=== PATIENT | male | born 1930 | race Caucasian/White ===

== ENCOUNTER 2016-08-22 10:26 | Outpatient (CLI) | payer OTHER ==
--- NOTE | 2016-08-22 13:13 | DIAGNOSTIC IMAGING REPORT ---
PROCEDURE: XR UPPER GI WITH AIR INDICATION: DARK STOOL TECHNIQUE: Real time fluoroscopy was used on the upper GI system. Total fluoro time 4.7 minutes. Cumulative dose 6228.46 mGy 164 images obtained including cine imaging and last image hold screen capture images. COMPARISON: 05/12/2015 FINDINGS: Moderate laryngeal penetration. Moderate diffuse esophageal spasm in the mid and distal esophagus. The distal esophagus is redundant. There is a fixed, smoothly marginated, circumferential esophageal stricture in the distal esophagus with a minimal luminal diameter of approximately 5 mm, similar compared to the previous study. There is moderate size hiatal hernia. Mild to moderate spontaneous gastroesophageal reflux in the recumbent position. No evidence of gastric mucosal irregularity, ulceration, or mass. Prompt gastric emptying. Normal pylorus and duodenal sweep. 12 mm in duodenal diverticulum in the second portion. IMPRESSION: 1. Stable study compared to the previous year. 2. Benign appearing fixed distal esophageal stricture, stable. 3. Moderate diffuse esophageal spasm. 4. Mild to moderate gastroesophageal reflux. 5. Moderate size chronic hiatal hernia. 6. 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
[2016-09-02] MEDS ORDERED: OMEPRAZOLE40 MG PO (11:26)
[2016-09-02] MEDS ORDERED: FLOMAX0.4 MG PO (11:27)
[2016-09-02] MEDS ORDERED: FOSAMAX70 MG PO (11:27)
[2016-09-02] MEDS ORDERED: ATORVASTATIN CA10 MG PO (11:28)
[2016-09-02] MEDS ORDERED: VERAPAMIL HCL240 M4 PO (11:28)
[2016-09-02] MEDS ORDERED: LEVOTHYROXINE50 MCG PO (11:29)
[2016-09-02] MEDS ORDERED: SERTRALINE HCL50 MG PO (11:30)
[2016-09-02] MEDS ORDERED: LISINOPRIL40 MG PO (11:31)
[2016-09-02] MEDS ORDERED: ELIQUIS5 MG PO (11:52)
== END 2016-08-22 23:00 ==
LOC: XR SRH 10:26
DX: K22.4 Dyskinesia of esophagus (principal); K21.9 Gastro-esophageal reflux disease without esophagitis; K44.9 Diaphragmatic hernia without obstruction or gangrene; K57.10 Diverticulosis of small intestine without perforation or abscess without bleeding

== ENCOUNTER 2016-09-05 06:10 | Day surgery (SDC) | payer OTHER ==
[~2016-09-05] VITALS: Ht 177.8 cm; Wt 91.5 kg
[~2016-09-05 06:10] MED LIST: ATORVASTATIN CA10 MG PO; ELIQUIS5 MG PO; FLOMAX0.4 MG PO; FOSAMAX70 MG PO; LEVOTHYROXINE50 MCG PO; LISINOPRIL40 MG PO; OMEPRAZOLE40 MG PO; SERTRALINE HCL50 MG PO; VERAPAMIL HCL240 M4 PO
--- NOTE | 2016-09-05 09:54 | Provider's Discharge Care Plan ---
Problem, Goal, Plan Problem List 1. S/P EGD WITH BALLOON DILATION Goals: Screening, Therapeutic intervention Instructions: Follow up as directed, Take meds as directed
--- NOTE | 2016-09-05 09:54 | Provider's Discharge Care Plan ---
Problem, Goal, Plan Problem List 1. S/P EGD WITH BALLOON DILATION Goals: Screening, Therapeutic intervention Instructions: Follow up as directed, Take meds as directed
--- NOTE | 2016-09-05 10:06 | Operative Report ---
Operative Report Date of Surgery: 09/05/16 Preoperate Diagnosis: melanic stool Postoperative Diagnosis: vital hernia, Schatzki's ring, narrowing at EG junction Surgeon: Dwayne Mcgowan MD Junior Brand Manager Surgeon: none Procedure Performed: Upper GI endoscopy was recommended gastric mucosal biopsies. Balloon dilation of distal esophagus esophagus/EG junction Anesthesia: General intra- venous anesthesia Indications: 85-year-old male on chronic blood thinners was noted to have melenic stool. It was recommended he undergo colonoscopy he refused. Patient decided to proceed with EGD. Barium swallow shows reflux, hiatal hernia, narrowing of the distal esophagus at the EG junction. FINDINGS: Narrowing of the EG junction which Schatzki's ring, moderate to large hiatal hernia. Normal appearing gastric ankle pattern. Normal appearing duodenal bulb and duodenum. Surgical Technique: Patient brought to the operating room placed in the left lateral decubitus position. Patient was administered total intravenous anesthesia.. Once anesthesia had taken affect, the posterior pharynx was sprayed using Cetacaine spray. An Olympus fiberoptic video upper GI endoscope was passed in to the patient's posterior pharynx. The esophagus intubated under direct visualization. The scope passed easily down the esophagus through the EG junction which was located approximately at. The scope passed easily through the EG junction into the gastric lumen and eventually into the second third portion of duodenum. On withdrawing the scope, the afore mentioned findings were noted. The scope was withdrawn into the gastric lumen and retroflexed. Good view of the cardia, fundus, hiatal hernia and EG junction from below, and greater and lesser curvature. Multiple random biopsies were obtained of the gastric mucosa to rule out H. pylori. The scope was withdrawn into the EG junction, a balloon catheter was passed across the EG junction. The dilating balloon was insufflated at 6 orly to 20 mm and kept in position for approximately 3 min. The balloon was then deflated The scope and balloon were then completely withdrawn. Patient tolerated procedure well. Patient was transferred to the recovery room in stable condition. There were no intraoperative or anesthetic complications.
[2016-09-05 11:13] VITALS: BP 132/90
== END 2016-09-05 11:15 | disposition home or self-care (01) ==
LOC: OR SRH 06:10 → SCU SRH 06:11 → OR SRH 07:30
PROVIDERS: Specialist
PROC: 0D738ZZ Dilation of Lower Esophagus, Via Natural or Artificial Opening Endoscopic (ICD-10-PCS; principal; 2016-09-05 07:30)
PROC: 0D748ZZ Dilation of Esophagogastric Junction, Via Natural or Artificial Opening Endoscopic (ICD-10-PCS; principal; 2016-09-05 07:30)
PROC: 0DB68ZX Excision of Stomach, Via Natural or Artificial Opening Endoscopic, Diagnostic (ICD-10-PCS; principal; 2016-09-05 07:30)
DX: K22.2 Esophageal obstruction (principal); K44.9 Diaphragmatic hernia without obstruction or gangrene; Z79.01 Long term (current) use of anticoagulants; Z86.73 Personal history of transient ischemic attack (TIA), and cerebral infarction without residual deficits; I10 Essential (primary) hypertension
CPT/HCPCS: 29229; 29240; 50004; 60001; 82731; 82943; 83526; 90074; 90705; 94060

== ENCOUNTER 2016-09-17 12:27 | Emergency (ER) | payer OTHER ==
--- NOTE | 2016-09-17 14:17 | ED NURSING NOTES ---
Clinical Report - Nurses [place] [address] [place] [address] 09/17/2016 12:29 Patient: SHAN MENA TRIAGE Triage time 12:35. Acuity: LEVEL 3. Chief Complaint: FALL (GLF: while trying to get into a car. Denies feeling dizzy. Pt. states, "I just fell to the ground." Denies hitting head or LOC.). Alert. No acute distress. SEPSIS SCREEN: Sepsis Screen. Negative (no infection suspected/documented). MARCOS COMA SCORE: Marcos Coma Scale: 15- eyes open spontaneously (4); best verbal response- oriented x 4 (5); best motor response- obeys commands (6). --13:06 Racheal Mauricio R.N. 12:35 09/17/16. BP: 146/83. HR: 70. RR: 20. O2 saturation: 98%. Temp: 98.2 F. Pain level now 10. --13:06 Racheal Mauricio R.N. Weight: 95.2 kg stated. Height/Length: 70 inches Per Patient. BMI: 30.1. --12:36 Racheal Mauricio R.N. Medications Fosamax Oral 70 mg, once weekly. --12:55 Racheal Mauricio R.N. Sertraline HCl Oral 50 mg, daily. --12:55 Racheal Mauricio R.N. Flomax Oral 0.4 mg, 2x a day. --12:55 Racheal Mauricio R.N. Atorvastatin Calcium Oral 10 mg, daily. --12:55 Racheal Mauricio R.N. Verapamil HCl Oral 240mg ER , at bedtime. --12:56 Racheal Mauricio R.N. Levothyroxine Sodium Oral 50 mcg, daily. --12:57 Racheal Mauricio R.N. Lisinopril Oral 40 mg, daily. --12:57 Racheal Mauricio R.N. Allergies NKDA. --12:41 Racheal Mauricio R.N. History Arrived by EMS. Historian: patient. Accompanied by son. Primary physician (Dr. Bright). Location of injuries: left hip. This occurred today. ( pt. removed from backboard @ 12:40). Treatment TUB TENDER: Splint and (and backboard). PAST MEDICAL HX: Tetanus status: unknown. Immunizations: up-to-date. SOCIAL HX: Never smoker. No alcohol use or drug use. ABUSE ASSESSMENT: Abuse assessment: The patient was asked "Do you feel safe in your home?" and "Has anyone hurt you or threatened to hurt you?". No report of abuse. NUTRITIONAL RISK ASSESSMENT: The nutritional risk assessment revealed no deficiencies. FUNCTIONAL ASSESSMENT: Functional assessment: no impairments noted. LEARNING NEEDS ASSESSMENT: The learning needs assessment revealed no barriers. --13:06 Racheal Mauricio R.N. PROBLEMS: Anemia. CVA - Cerebrovascular Accident. Depression. Hypothyroidism. Hypertension. Hyperlipidemia. --13:04 Racheal Mauricio R.N. Arrhythmia. --13:05 Racheal Mauricio R.N. ADDITIONAL SURGERIES: Back Surgery. Hernia Repair. Left knee. Pacemaker. --13:05 Racheal Mauricio R.N. Interventions ID band on patient. Transported via stretcher. --13:06 Racheal Mauricio R.N. PHYSICAL ASSESSMENT To room via stretcher. GENERAL / NEURO / PSYCH: Alert. Appears in no acute distress. RESPIRATORY: Respirations not labored. CVS: Capillary refill less than 2 seconds. EXTREMITIES: Right thumb: (small abrasion. Bleeding controlled.). SKIN: Skin is warm and dry. ( small abrasion on the left elbow. Bleeding controlled.). --12:39 Racheal Mauricio R.N. NURSING PROGRESS NOTES Patient placed on backboard. Two patient identifiers checked. Call light placed in reach. Side rails up x 2. Bed placed in lowest position. Brakes of bed on. Patient ready for evaluation- chart flagged. --12:39 Racheal Mauricio R.N. 12:39 09/17/2016 Site #1 started via IV in the right forearm with an 20g angiocath, with aseptic technique and good blood return; one attempt. Blood drawn: rainbow set. Labeled in the presence of the patient and sent to the lab. Saline lock flushed with 10 mL saline (accessed by MAR Mao). --12:39 Racheal Mauricio R.N. 12:40 09/17/2016 Morphine IVP 4 mg given over 1 minute(s) via site #1. Allergies verified, confirmed 5 rights and sedative warning given to the patient. IV patency established. IV site checked: no pain, redness, or swelling. IV flushed thoroughly pre- and post-medication administration. --12:40 Racheal Mauricio R.N. 12:40 09/17/2016 Zofran (Ondansetron HCl) IVP 4 mg given over 1 minute(s) via site #1. Allergies verified and confirmed 5 rights. IV patency established. IV site checked: no pain, redness, or swelling. IV flushed thoroughly pre- and post-medication administration. --12:40 Racheal Mauricio R.N. 12:51 09/17/2016 Morphine IVP 4 mg given over 1 minute(s) via site #1. Allergies verified, confirmed 5 rights and sedative warning given to the patient. IV patency established. IV site checked: no pain, redness, or swelling. IV flushed thoroughly pre- and post-medication administration. --12:51 Racheal Mauricio R.N. 12:56 09/17/2016 Diazepam (Diazepam) IVP 5 mg given over 2 minute(s) via site #1. Allergies verified, confirmed 5 rights and sedative warning given to the patient. IV patency established. IV site checked: no pain, redness, or swelling. IV flushed thoroughly pre- and post-medication administration (administered by Daylin, MAR). --13:01 Racheal Mauricio R.N. Reassessment after medication administered. He has had no adverse reaction. Overall patient status- he states feels better. --13:06 Racheal Mauricio R.N. 13:06 09/17/16. BP: 123/68. HR: 70. RR: 16. O2 saturation: 98%. --13:06 Racheal Mauricio R.N. Patient transported to radiology by stretcher with O2 and tech. (13:12 Sep 17 2016). --13:19 Poncho Merritt R.N. 13:52 09/17/2016 Started bag #1 1000 mL IV Fluids IV LACTATED RINGERS; at 150 mL/hr over 4 hour(s) via site #1 via IV pump. Allergies verified and confirmed 5 rights. IV patency established. IV site checked: no pain, redness, or swelling. IV flushed thoroughly pre- and post-medication administration. --13:52 Racheal Mauricio R.N. 13:54 09/17/2016 TDAP IM 0.5 mL given. (Lot#: [id number], expiration date: 02/05/2018, Chief Knowledge Officer: sanofi pasteur). Given in the left deltoid. Allergies verified and confirmed 5 rights. Vaccine information statement provided to the patient. --13:54 Racheal Mauricio R.N. EKG time: (1402). EKG was ordered, performed by a tech and shown to the ED physician. --14:13 Ayanna Prather 14:23 09/17/16. BP: 124/63. HR: 70. RR: 18. O2 saturation: 99%. Temp: 97.9 F. --14:25 Ayanna Prather 15:03 09/17/16. BP: 125/64. HR: 70. RR: 18. O2 saturation: 99%. Pain level now 10/10. --15:03 Racheal Mauricio R.N. Patient and family informed about reason for wait and about plan of care. --15:03 Racheal Mauricio R.N. 15:45 09/17/2016 Morphine IVP 4 mg given over 2 minute(s) via site #1. Allergies verified, confirmed 5 rights and sedative warning given to the patient and patient's family. IV patency established. IV site checked: no pain, redness, or swelling. IV flushed thoroughly pre- and post-medication administration. IVP given by RN. --15:45 Jeanna Kendrick R.N. 16:41 09/17/2016 Started 1000 mg of TRANEXAMIC ACID (LOADING DOSE) IVPB in bag #1 50 mL; at 200 mL/hr over 15 minute(s) via site #1 via IV pump. Allergies verified and confirmed 5 rights. IV patency established. IV site checked: no pain, redness, or swelling. IV flushed thoroughly pre- and post-medication administration. --16:41 Racheal Mauricio R.N. 16:42 09/17/16. BP: 115/54. HR: 70. RR: 16. O2 saturation: 100%. --16:42 Racheal Mauricio R.N. 12:39 09/17/2016 Site #2 started via IV in the right forearm with an 20g angiocath, with aseptic technique and good blood return; one attempt. Saline lock flushed with 10 mL saline (site # 1. placed by MAR Mao). --18:24 Racheal Mauricio R.N. 17:00 09/17/2016 TRANEXAMIC ACID (LOADING DOSE) IVPB Discontinued: bag #1 completed upon admission. Total amount infused: 50 mL. IV patency established. IV site checked: no pain, redness, or swelling. IV flushed thoroughly. --17:00 Lloyd Sullivan R.N. 18:05 09/17/2016 Morphine IVP 4 mg given over 1 minute(s) via site #1. Allergies verified, confirmed 5 rights and sedative warning given to the patient. IV patency established. IV site checked: no pain, redness, or swelling. IV flushed thoroughly pre- and post-medication administration. --18:24 Racheal Mauricio R.N. 18:10 09/17/2016 IV Fluids IV LACTATED RINGERS Discontinued: bag #1 infused. Total amount infused: 500 mL. IV patency established. IV site checked: no pain, redness, or swelling. IV flushed thoroughly. --18:16 Racheal Mauricio R.N. DISPOSITION / DISCHARGE 17:51 09/17/2016 Site #[address] upon discharge; patent and no signs of infiltration. Converted to saline lock and flushed with 10 mL saline; flushes easily. --17:51 Racheal Mauricio R.N. Condition at departure: stable. --18:14 Racheal Mauricio R.N. 18:10 09/17/16. BP: 110/52. HR: 70. RR: 16. O2 saturation: 98%. Temp: 98 F. Olvera-Leone pain scale: 08/08. --18:14 Racheal Mauricio R.N. Departure time: 1809. Transferred to [facility]. Summary of care provided to transport team. Transported via ambulance by nurse and EMS with IV and O2. Report was given to a nurse in person. Report included patient's care, treatment, medications, reviewed medication reconcilliation, and condition (including any recent changes or anticipated changes). (to transport team). Patient's personal items; items were placed in belongings bag and given to the spouse. Medication list reviewed and validated. --18:27 Racheal Mauricio R.N. Locked/Released at 09/17/2016 18:28 by Racheal Mauricio R.N.
--- NOTE | 2016-09-17 14:17 | ED ORDER SUMMARY ---
..... Patient: SHAN MENA [facility] VisitID: [id number] [place] [address] 85y, M Registration Date/Time: 09/17/2016 ORDER SHEET Weight: 95.2 kg (stated) Allergies: NKDA GENERAL ORDERS: Hip 2V Left w AP Pelvis Urgent (12:58 09/17/2016 Alfredo Harrell) (Ack 12:59 Bakari) (14:29 JPerrya R.N.) CBC w Diff Urgent (12:58 09/17/2016 Alfredo Harrell) (Ack 12:59 Bakari) (14:28 JNate R.N.) CMP Urgent (12:58 09/17/2016 Alfredo Harrell) (Ack 12:59 Bakari) (14:29 JNate R.N.) Chest 1V Urgent (13:30 09/17/2016 Alfredo Harrell) (Ack 13:32 Bakari) (14:29 Yogesh R.N.) NPO (13:38 09/17/2016 Alfredo Harrell) (13:45 Suki R.N.) EKG - ER Stat (13:51 09/17/2016 Alfredo Harrell) (14:23 Markus) PT with INR Urgent (13:51 09/17/2016 Alfredo Harrell) (Ack 14:10 Bakari) (14:29 Yogesh R.N.) PTT Urgent (13:51 09/17/2016 Alfredo Harrell) (Ack 14:10 Bakari) (14:29 Yogesh R.N.) Type & Screen Urgent (15:03 09/17/2016 Bakari written order Alfredo Harrell) (Ack 15:03 Suki R.N.) (15:20 Suki R.N.) MEDICATION ORDERS: Tdap IM 0.5 mL (NOW, per protocol) (13:30 09/17/2016 Alfredo Harrell) (13:54 Suki R.N.) Tranexamic Acid (Loading Dose) IV 1000 mg/50mL (Over 15 minutes) (15:44 09/17/2016 Alfredo Harrell) (Ack 16:13 Suki R.N.) (16:41 Suki R.N.) IV FLUIDS: Morphine IV 4 mg (NOW) (12:40 09/17/2016 Suki R.NViolette verbal order read back to Alfredo Harrell) (12:40 Suki R.N.) Zofran IV 4 mg (NOW) (12:40 09/17/2016 Suki Vee.NViolette verbal order read back to Alfredo Harrell) (12:40 Suki R.N.) Morphine IV 4 mg (NOW) (12:50 09/17/2016 Suki R.NViolette verbal order read back to Alfredo Harrell) (12:51 Suki R.N.) Diazepam IV 5 mg (HIGH ALERT MEDICATION, NOW) (12:52 09/17/2016 Alfredo Harrell) (13:01 Suki R.N.) IV Lactated Ringers : initial bolus none -, then 150 mL/hr (NOW) (13:38 09/17/2016 Alfredo Harrell) (13:52 Suki R.N.) Morphine IV 4 mg (HIGH ALERT MEDICATION, NOW) (15:41 09/17/2016 Alfredo Harrell) (Ack 15:44 Camden R.N.) (15:45 Felicity R.N.) Morphine IV 4 mg (HIGH ALERT MEDICATION, NOW) (18:05 09/17/2016 Alfredo Harrell) (18:24 Suki R.N.) ORDER SHEET NOTES: Reason for Study: Anemia [Electronically signed by Racheal Mauricio R.N. (18:28 09/17/2016)] [Electronically signed by Melvin Faye Dr. (18:57 09/17/2016)] [Electronically locked/signed by Racheal Mauricio R.N. (18:28 09/17/2016)]
--- NOTE | 2016-09-17 14:17 | ED CLINICAL REPORT ---
Clinical Report - Physicians/Mid Levels [facility] [address] [place] [address] 09/17/2016 12:29 [id number] Time Seen: 12:37; initial patient contact. Arrived- By ambulance. Historian- patient. HISTORY OF PRESENT ILLNESS Chief Complaint: FALL. The injury occurred just prior to arrival. Occurred at home. Fell while walking and landed on the ground; tripped. The patient complains of severe pain in the left lower extremity (hip). No blow to the head, neck pain or loss of consciousness. Not dazed. REVIEW OF SYSTEMS No numbness, dizziness, weakness, abdominal pain or back pain. No neck pain. He sustained skin laceration. He has had severe joint pain, involving the left hip. All systems otherwise negative, except as recorded above. PAST HISTORY Anemia. CVA - Cerebrovascular Accident. Depression. Hypothyroidism. Hypertension. Hyperlipidemia. Arrhythmia. SURGERIES: Back Surgery. Hernia Repair. Left knee. Pacemaker. Medications: Lisinopril Oral 40 mg, daily. Levothyroxine Sodium Oral 50 mcg, daily. Verapamil HCl Oral 240mg ER , at bedtime. Atorvastatin Calcium Oral 10 mg, daily. Flomax Oral 0.4 mg, 2x a day. Sertraline HCl Oral 50 mg, daily. Fosamax Oral 70 mg, once weekly. Allergies: NKDA. SOCIAL HISTORY Never smoker. No alcohol use or drug use. ADDITIONAL NOTES The nursing notes have been reviewed. PHYSICAL EXAM Vital Signs: 09/17/2016 12:35 BP: 146/83. HR: 70. RR: 20. O2 saturation: 98%. Temp: 98.2 F. Have been reviewed. Hypertensive. Heart rate normal. Respiratory rate normal. Temperature normal. Oxygen saturation normal. Appearance: Patient on a backboard. Alert. Oriented X3. No acute distress. Head: Head non-tender. No swelling of head. Eyes: Pupils equal, round and reactive to light. EOM intact. ENT: No dental injury. Pharynx normal. Neck: Painless ROM. Non-tender. CVS: Heart sounds normal. Rate normal. Rhythm normal. Respiratory: No respiratory distress. Breath sounds normal. Chest nontender. Abdomen: No visible injury. Soft and nontender. Bowel sounds normal. No organomegaly. No mass. Back: No tenderness. ROM normal. Skin: The patient has a single medium superficial abrasion on the left elbow. Extremities: Left hip: moderate tenderness. The left leg is shortened, internally rotated and flexed. Limited ROM (diminished abduction, adduction, flexion, extension and external and internal rotation). Neurovascular intact distally. No lower extremity edema. Neuro: Oriented X 3. LABS, X-RAYS, AND EKG Chest X-ray: No acute disease. Borderline cardiomegaly. No evidence of vascular congestion. Pacemaker present. Views: AP. Technique: good. The X-rays were independently viewed by me and interpreted contemporaneously by me. Interpretation time: 12:59. Lt Hip X-ray: Nondisplaced, oblique intertrochanteric fracture of the left hip. Views: 2 view hip series. Technique: good. The X-rays were independently viewed by me and interpreted contemporaneously by me. Prior films were not available for comparison. Interpretation time: 14:14. Laboratory Tests: CBC w Diff: (NELSON: 09/17/2016 13:00) ( MsgRcvd 09/17/2016 13:42) Final results Test Result Flag Units (Reference) WHITE BLOOD COUNT 7.2 K/uL (4.5-11.5) RED BLOOD COUNT 3.97 L M/uL (4.50-5.90) HEMOGLOBIN 8.9 L gm/dL (13.5-17.5) HEMATOCRIT 28.3 L % (41.0-53.0) MEAN CELL VOLUME 71 L fL (80-100) MEAN CORPUSCULAR HGB 22 L pg (26-34) MEAN CORPUSCULAR HGB CONC 31 g/dL (31-37) RED CELL DISTRIBUTION WIDTH 17.4 H % (11.6-14.8) PLATELET COUNT 255 K/uL (150-400) NEUTROPHIL % 69.8 % (50-75) LYMPH % 18.8 L % (25-40) MONO % 10.2 % (3-14) EOSINOPHIL % 1.1 % (0-4) BASOPHIL % 0.1 % (0-2) RBC MORPHOLOGY 3+ HYPOCHROMASIA~~2+ ANISOCYTOSIS~~1+ OVALOCYTOSIS PT with INR: (NELSON: 09/17/2016 13:00) ( MsgRcvd 09/17/2016 14:11) Final results Test Result Flag Units (Reference) INR 1.1 (0.8-1.2) Low Intensity Therapy: INR 1.5-2.0 PT range 18.5-23.1Mod.Intensity Therapy: INR 2.0-3.0 PT range 23.1-31.5High Intensity Therapy: INR 2.5-3.5 PT range 27.4-35.5High Intensity Therapy 2: INR 3.0-4.0 PT range 31.5-39.3 APTT 28 SECONDS (24-34) CMP: (NELSON: 09/17/2016 13:00) ( NygRcvd 09/17/2016 13:35) Final results Test Result Flag Units (Reference) GLUCOSE 109 mg/dL (70-110) BUN 21 H mg/dL (7-18) CREATININE 1.1 mg/dL (0.6-1.3) Estimated GFR >60 mL/min Estimated GFR- >60 mL/min Note: Persistent reduction over 3 months in eGFR<60 mL/min/1.73 m2 defines CKD. Patients with eGFR values>=60 mL/min/1.73 m2 may also have CKD if evidence ofpersistent proteinuria. Additional information may be foundat www.kidney.org. SODIUM 139 mmol/L (136-145) POTASSIUM 3.8 mmol/L (3.5-5.1) CHLORIDE 105 mmol/L (98-107) CARBON DIOXIDE 19 L mmol/L (21-32) CALCIUM 8.1 L mg/dL (8.5-10.1) TOTAL PROTEIN 6.7 g/dL (6.4-8.2) ALBUMIN 3.5 g/dL (3.3-5.0) BILIRUBIN, TOTAL 0.5 mg/dL (0.0-1.0) ALKALINE PHOSPHATASE 62 U/L (46-116) AST (SGOT) 20 U/L (15-37) ALT (SGPT) 21 U/L (12-78) Type & Screen: (NELSON: 09/17/2016 13:00) ( MsgRcvd 09/17/2016 16:05) Final results Test Result Flag Units (Reference) PATIENT BLOOD TYPE O Positive ANTIBODY SCREEN NEGATIVE . PROGRESS AND PROCEDURES Course of Care: 16:36 09/17/16. Getting multiple setbacks from Pt's , grand daughter, and daughter. A lot of insistence on transferring the pt to [facility] for surgery. Explained that we spoke with [facility] and he would be a boarder in the ER for several hours prior to being taken care of. Awaiting call from ortho at [facility]. Pt has been seen by the hospitalist as well as ortho and the OR team has been here on standby. We have explained to the pt and family that delay in care is inadvisable but they prefer for him to not have surgery at a [facility]. 18:51 09/17/16. Pt's daughter who is a flight nurse for had been insisting that he go via helicopter to [place]. Pt is and has been stable the entire stay. S transfer is more than appropriate and in my opinion tying up a helicopter for a non-emergent transfer is not necessary and would potentially tie up valuable resources unnecessarily. Discussed case with hospitalist, (call returned 14:14 Dr. Ramos will admit due to Dr. Deangelo JIMENEZ(will take over in the AM).). Call placed to hospitalist call returned 17:06 Dr. Bosch at [facility](Hospitalist) will accept pt and ortho will see once they arrive. Consult obtained from orthopedics. call returned 14:15 Dr. Richardson, will admit to medicine and clear and he will take to the OR as soon as he is cleared. Disposition: Benefits, risks and alternatives to transfer explained to patient and family. Transferred to [facility]. Per family request. Condition: good. CLINICAL IMPRESSION Closed nondisplaced transverse, intertrochanteric fracture of the left femur. Moderate chronic iron deficiency anemia from chronic blood loss. INSTRUCTIONS Follow-up: Blood pressure screening was not performed during this visit because the patient has an active diagnosis of hypertension. (Electronically signed by Melvin Faye Dr. 09/17/2016 18:57)
--- NOTE | 2016-09-17 14:17 | ED ORDER SUMMARY ---
..... Patient: SHAN MENA OrderSheet [facility] VisitID: [id number] [place] [address] 85y, M Registration Date/Time: 09/17/2016 ORDER SHEET Weight: 95.2 kg (stated) Allergies: NKDA GENERAL ORDERS: Hip 2V Left w AP Pelvis Urgent (12:58 09/17/2016 Alfredo Harrell) (Ack 12:59 Bakari) (14:29 JPerrya R.N.) CBC w Diff Urgent (12:58 09/17/2016 Alfredo Harrell) (Ack 12:59 Bakari) (14:28 JNate R.N.) CMP Urgent (12:58 09/17/2016 Alfredo Harrell) (Ack 12:59 Bakari) (14:29 JNate R.N.) Chest 1V Urgent (13:30 09/17/2016 Alfredo Harrell) (Ack 13:32 Bakari) (14:29 Yogesh R.N.) NPO (13:38 09/17/2016 Alfredo Harrell) (13:45 Suki R.N.) EKG - ER Stat (13:51 09/17/2016 Alfredo Harrell) (14:23 Markus) PT with INR Urgent (13:51 09/17/2016 Alfredo Harrell) (Ack 14:10 Bakari) (14:29 Yogesh R.N.) PTT Urgent (13:51 09/17/2016 Alfredo Harrell) (Ack 14:10 Bakari) (14:29 Yogesh R.N.) Type & Screen Urgent (15:03 09/17/2016 Bakari written order Alfredo Harrell) (Ack 15:03 Suki R.N.) (15:20 Suki R.N.) MEDICATION ORDERS: Tdap IM 0.5 mL (NOW, per protocol) (13:30 09/17/2016 Alfredo Harrell) (13:54 Suki R.N.) Tranexamic Acid (Loading Dose) IV 1000 mg/50mL (Over 15 minutes) (15:44 09/17/2016 Alfredo Harrell) (Ack 16:13 Suki R.N.) (16:41 Suki R.N.) IV FLUIDS: Morphine IV 4 mg (NOW) (12:40 09/17/2016 Suki R.NViolette verbal order read back to Alfredo Harrell) (12:40 Suki R.N.) Zofran IV 4 mg (NOW) (12:40 09/17/2016 Suki Vee.NViolette verbal order read back to Alfredo Harrell) (12:40 Suki R.N.) Morphine IV 4 mg (NOW) (12:50 09/17/2016 Suki R.NViolette verbal order read back to Alfredo Harrell) (12:51 Suki R.N.) Diazepam IV 5 mg (HIGH ALERT MEDICATION, NOW) (12:52 09/17/2016 Alfredo Harrell) (13:01 Suki R.N.) IV Lactated Ringers : initial bolus none -, then 150 mL/hr (NOW) (13:38 09/17/2016 Alfredo Harrell) (13:52 Suki R.N.) Morphine IV 4 mg (HIGH ALERT MEDICATION, NOW) (15:41 09/17/2016 Alfredo Harrell) (Ack 15:44 Camden R.N.) (15:45 Felicity R.N.) Morphine IV 4 mg (HIGH ALERT MEDICATION, NOW) (18:05 09/17/2016 Alfredo Harrell) (18:24 Suki R.N.) ORDER SHEET NOTES: Reason for Study: Anemia [Electronically signed by Racheal Mauricio R.N. (18:28 09/17/2016)] [Electronically signed by Melvin Faye Dr. (18:57 09/17/2016)] [Electronically locked/signed by Racheal Mauricio R.N. (18:28 09/17/2016)]
--- NOTE | 2016-09-17 14:17 | ED CLINICAL REPORT ---
Clinical Report - Physicians/Mid Levels [facility] [address] [place] [address] 09/17/2016 12:29 [id number] Time Seen: 12:37; initial patient contact. Arrived- By ambulance. Historian- patient. HISTORY OF PRESENT ILLNESS Chief Complaint: FALL. The injury occurred just prior to arrival. Occurred at home. Fell while walking and landed on the ground; tripped. The patient complains of severe pain in the left lower extremity (hip). No blow to the head, neck pain or loss of consciousness. Not dazed. REVIEW OF SYSTEMS No numbness, dizziness, weakness, abdominal pain or back pain. No neck pain. He sustained skin laceration. He has had severe joint pain, involving the left hip. All systems otherwise negative, except as recorded above. PAST HISTORY Anemia. CVA - Cerebrovascular Accident. Depression. Hypothyroidism. Hypertension. Hyperlipidemia. Arrhythmia. SURGERIES: Back Surgery. Hernia Repair. Left knee. Pacemaker. Medications: Lisinopril Oral 40 mg, daily. Levothyroxine Sodium Oral 50 mcg, daily. Verapamil HCl Oral 240mg ER , at bedtime. Atorvastatin Calcium Oral 10 mg, daily. Flomax Oral 0.4 mg, 2x a day. Sertraline HCl Oral 50 mg, daily. Fosamax Oral 70 mg, once weekly. Allergies: NKDA. SOCIAL HISTORY Never smoker. No alcohol use or drug use. ADDITIONAL NOTES The nursing notes have been reviewed. PHYSICAL EXAM Vital Signs: 09/17/2016 12:35 BP: 146/83. HR: 70. RR: 20. O2 saturation: 98%. Temp: 98.2 F. Have been reviewed. Hypertensive. Heart rate normal. Respiratory rate normal. Temperature normal. Oxygen saturation normal. Appearance: Patient on a backboard. Alert. Oriented X3. No acute distress. Head: Head non-tender. No swelling of head. Eyes: Pupils equal, round and reactive to light. EOM intact. ENT: No dental injury. Pharynx normal. Neck: Painless ROM. Non-tender. CVS: Heart sounds normal. Rate normal. Rhythm normal. Respiratory: No respiratory distress. Breath sounds normal. Chest nontender. Abdomen: No visible injury. Soft and nontender. Bowel sounds normal. No organomegaly. No mass. Back: No tenderness. ROM normal. Skin: The patient has a single medium superficial abrasion on the left elbow. Extremities: Left hip: moderate tenderness. The left leg is shortened, internally rotated and flexed. Limited ROM (diminished abduction, adduction, flexion, extension and external and internal rotation). Neurovascular intact distally. No lower extremity edema. Neuro: Oriented X 3. LABS, X-RAYS, AND EKG Chest X-ray: No acute disease. Borderline cardiomegaly. No evidence of vascular congestion. Pacemaker present. Views: AP. Technique: good. The X-rays were independently viewed by me and interpreted contemporaneously by me. Interpretation time: 12:59. Lt Hip X-ray: Nondisplaced, oblique intertrochanteric fracture of the left hip. Views: 2 view hip series. Technique: good. The X-rays were independently viewed by me and interpreted contemporaneously by me. Prior films were not available for comparison. Interpretation time: 14:14. Laboratory Tests: CBC w Diff: (NELSON: 09/17/2016 13:00) ( MsgRcvd 09/17/2016 13:42) Final results Test Result Flag Units (Reference) WHITE BLOOD COUNT 7.2 K/uL (4.5-11.5) RED BLOOD COUNT 3.97 L M/uL (4.50-5.90) HEMOGLOBIN 8.9 L gm/dL (13.5-17.5) HEMATOCRIT 28.3 L % (41.0-53.0) MEAN CELL VOLUME 71 L fL (80-100) MEAN CORPUSCULAR HGB 22 L pg (26-34) MEAN CORPUSCULAR HGB CONC 31 g/dL (31-37) RED CELL DISTRIBUTION WIDTH 17.4 H % (11.6-14.8) PLATELET COUNT 255 K/uL (150-400) NEUTROPHIL % 69.8 % (50-75) LYMPH % 18.8 L % (25-40) MONO % 10.2 % (3-14) EOSINOPHIL % 1.1 % (0-4) BASOPHIL % 0.1 % (0-2) RBC MORPHOLOGY 3+ HYPOCHROMASIA~~2+ ANISOCYTOSIS~~1+ OVALOCYTOSIS PT with INR: (NELSON: 09/17/2016 13:00) ( MsgRcvd 09/17/2016 14:11) Final results Test Result Flag Units (Reference) INR 1.1 (0.8-1.2) Low Intensity Therapy: INR 1.5-2.0 PT range 18.5-23.1Mod.Intensity Therapy: INR 2.0-3.0 PT range 23.1-31.5High Intensity Therapy: INR 2.5-3.5 PT range 27.4-35.5High Intensity Therapy 2: INR 3.0-4.0 PT range 31.5-39.3 APTT 28 SECONDS (24-34) CMP: (NELSON: 09/17/2016 13:00) ( DegRcvd 09/17/2016 13:35) Final results Test Result Flag Units (Reference) GLUCOSE 109 mg/dL (70-110) BUN 21 H mg/dL (7-18) CREATININE 1.1 mg/dL (0.6-1.3) Estimated GFR >60 mL/min Estimated GFR- >60 mL/min Note: Persistent reduction over 3 months in eGFR<60 mL/min/1.73 m2 defines CKD. Patients with eGFR values>=60 mL/min/1.73 m2 may also have CKD if evidence ofpersistent proteinuria. Additional information may be foundat www.[email or web address].org. SODIUM 139 mmol/L (136-145) POTASSIUM 3.8 mmol/L (3.5-5.1) CHLORIDE 105 mmol/L (98-107) CARBON DIOXIDE 19 L mmol/L (21-32) CALCIUM 8.1 L mg/dL (8.5-10.1) TOTAL PROTEIN 6.7 g/dL (6.4-8.2) ALBUMIN 3.5 g/dL (3.3-5.0) BILIRUBIN, TOTAL 0.5 mg/dL (0.0-1.0) ALKALINE PHOSPHATASE 62 U/L (46-116) AST (SGOT) 20 U/L (15-37) ALT (SGPT) 21 U/L (12-78) Type & Screen: (NELSON: 09/17/2016 13:00) ( MsgRcvd 09/17/2016 16:05) Final results Test Result Flag Units (Reference) PATIENT BLOOD TYPE O Positive ANTIBODY SCREEN NEGATIVE . PROGRESS AND PROCEDURES Course of Care: 16:36 09/17/16. Getting multiple setbacks from Pt's , grand daughter, and daughter. A lot of insistence on transferring the pt to [facility] for surgery. Explained that we spoke with [facility] and he would be a boarder in the ER for several hours prior to being taken care of. Awaiting call from ortho at [facility]. Pt has been seen by the hospitalist as well as ortho and the OR team has been here on standby. We have explained to the pt and family that delay in care is inadvisable but they prefer for him to not have surgery at a [facility]. 18:51 09/17/16. Pt's daughter who is a flight nurse for had been insisting that he go via helicopter to [place]. Pt is and has been stable the entire stay. S transfer is more than appropriate and in my opinion tying up a helicopter for a non-emergent transfer is not necessary and would potentially tie up valuable resources unnecessarily. Discussed case with hospitalist, (call returned 14:14 Dr. Ramos will admit due to Dr. Deangelo JIMENEZ(will take over in the AM).). Call placed to hospitalist call returned 17:06 Dr. Bosch at [facility](Hospitalist) will accept pt and ortho will see once they arrive. Consult obtained from orthopedics. call returned 14:15 Dr. Richardson, will admit to medicine and clear and he will take to the OR as soon as he is cleared. Disposition: Benefits, risks and alternatives to transfer explained to patient and family. Transferred to [facility]. Per family request. Condition: good. CLINICAL IMPRESSION Closed nondisplaced transverse, intertrochanteric fracture of the left femur. Moderate chronic iron deficiency anemia from chronic blood loss. INSTRUCTIONS Follow-up: Blood pressure screening was not performed during this visit because the patient has an active diagnosis of hypertension. (Electronically signed by Melvin Faye Dr. 09/17/2016 18:57)
--- NOTE | 2016-09-17 14:53 | DIAGNOSTIC IMAGING REPORT ---
PROCEDURE: XR HIP 2VW W W/O AP PELVIS-LT INDICATION: TRAUMA/INJURY TECHNIQUE: AP view of the pelvis and hips with lateral view of the left hip. COMPARISON: None. FINDINGS: LEFT HIP: Mildly decreased mineralization. Minimally angulated, minimally displaced intertrochanteric left femoral neck fracture. No dislocation. Mild degenerative joint space loss and spurring of the femoral acetabular region. PELVIS: Mild decreased mineralization. No acute pelvic fracture. Decreased joint space inferiorly at both sacroiliac joints and pubic symphysis. Mild joint space loss and spurring in the right lateral femoral acetabular joint. Multiple surgical tacks of bilateral inguinal hernia repair. IMPRESSION: 1. Minimally displaced/angulated left intertrochanteric femoral neck fracture. 2. No pelvic fracture. 3. Findings of prior hernia repair. 4. Mild degenerative changes.
--- NOTE | 2016-09-17 14:55 | DIAGNOSTIC IMAGING REPORT ---
PROCEDURE: XR CHEST 1 VIEW INDICATION: Trauma, hip fracture TECHNIQUE: Single view chest. 1336 hours COMPARISON: None FINDINGS: Mild cardiomegaly with multi lead right-sided subclavian pacemaker. Ectatic and tortuous thoracic aorta. Probable moderate-sized hiatal hernia. Asymmetric eventration right hemidiaphragm. Coarse interstitial markings. No central venous congestion. No acute consolidation. No effusion or pneumothorax. Intact osseous structures with mild degenerative change partially seen in the shoulders. IMPRESSION: 1. Cardiomegaly, pacemaker but no evidence of acute central venous congestion. 2. Interstitial thickening suggestive of chronic edema or other interstitial process. 3. Probable moderate-sized hiatal hernia.
--- NOTE | 2016-09-17 15:08 | Consultation Report ---
Admission Admit Date 09/17/16 History Chief Complaint L hip pain History of Present Illness 85 y M community ambulator without assistive device with L sided weakness after a CVA in 2003 sustained a ground level witnessed fall today. Denies LOC, other injury x abrasion on hand for which getting tetanus updated now. No CP/SOB. X- rays show displaced L intertrochanteric fx. Has unexplained anemia with neg UGI scope and plans for lower endoscopy on 10/03/16. Not on anticoagulation for CVA hx (eloquis stopped ~1.5 days ago) due to anemia. Pt of Dr. Bright who is out of town and requested hospitalist clear, admit, and follow patient for medical management until he returns tomorrow. Denies DM, hx DVT/PE/MRSA. NKDA. NPO p 0830. Patient History 1. Closed left hip fracture Intertrochanteric fx Social History Lives with , accompanied by a friend. Medications and Allergies Medications Current Medications Sig/Guru Start time Last Medication Dose Route Stop Time Status Admin Lisinopril 40 MG DAILY 09/18 09 UNV PO Sertraline HCl 50 MG DAILY 09/18 09 UNV PO Verapamil HCl 240 MG DAILY 09/18 0900 UNV PO Levothyroxine Sodium 50 MCG DAILY@09/18 0600 UNV PO Pantoprazole Sodium 40 MG DAILY@09/18 0600 UNV IV Heparin Sodium 5,000 UNITS BID 09/17 2100 UNV (Porcine) SC Tamsulosin HCl 0.8 MG QHS 09/17 2100 UNV PO Atorvastatin Calcium 10 MG QPM 09/17 1800 UNV PO Dextrose/Sodium 1,000 ML ASDIRECTED 09/17 1500 UNV Chloride IV Hydromorphone HCl 1 MG Q1H PRN 09/17 1445 UNV IV Ondansetron HCl 4 MG Q6H PRN 09/17 1445 UNV PO Allergies Coded Allergies: Benzyl Alcohol (05/08/09) Codeine (05/08/09) Fentanyl (05/08/09) Meperidine and Related (05/08/09) Phenothiazines (05/08/09) Promethazine (05/08/09) Uncoded Allergies: cont: Review of Systems Constitutional Weakness, Other (L sided weakness p CVA 2003). Denies: Fever, Chills, Sweats, Malaise. Physical Exam General Appearance Alert, Oriented X3, Cooperative, No acute distress HEENT Atraumatic Lungs Normal air movement Cardiovascular Regular rate and rhythm Extremities Tender at L hip, skin intact Skin No Breakdown Neurological Sensation intact, fires B AD&PFs & E&FHLs Psych/Mental Status Mental status normal, Mood normal LAB Results Laboratory Tests 09/17 1300 Chemistry Plasma Sodium (136 - 145 mmol/L) 139 Plasma Potassium (3.5 - 5.1 mmol/L) 3.8 Plasma Chloride (98 - 107 mmol/L) 105 CO2 (Enzymatic) (21 - 32 mmol/L) 19 BUN (7 - 18 mg/dL) 21 Creatinine (0.6 - 1.3 mg/dL) 1.1 Est GFR ( Amer) (mL/min) >60 Est GFR (Non-Af Amer) (mL/min) >60 Glucose (70 - 110 mg/dL) 109 Plasma Calcium (8.5 - 10.1 mg/dL) 8.1 Total Bilirubin (0.0 - 1.0 mg/dL) 0.5 AST (15 - 37 U/L) 20 ALT (12 - 78 U/L) 21 Alkaline Phosphatase (46 - 116 U/L) 62 Total Protein (6.4 - 8.2 g/dL) 6.7 Albumin (3.3 - 5.0 g/dL) 3.5 Coagulation INR (0.8 - 1.2) 1.1 APTT (24 - 34 SECONDS) 28 Hematology WBC (4.5 - 11.5 K/uL) 7.2 RBC (4.50 - 5.90 M/uL) 3.97 Hgb (13.5 - 17.5 gm/dL) 8.9 Hct (41.0 - 53.0 %) 28.3 MCV (80 - 100 fL) 71 MCH (26 - 34 pg) 22 RDW (11.6 - 14.8 %) 17.4 Neut % (Auto) (50 - 75 %) 69.8 Lymph % (Auto) (25 - 40 %) 18.8 [place] % (Auto) (3 - 14 %) 10.2 Eos % (Auto) (0 - 4 %) 1.1 Baso % (Auto) (0 - 2 %) 0.1 Plt Count, EDTA (150 - 400 K/uL) 255 RBC Morphology (2504 A) 1+ OVALOCYTOSIS PUBS MCHC (31 - 37 g/dL) 31 Imaging Displaced L intertroch fx Assessment and Plan Problem List 1. Closed left hip fracture Qualifiers Encounter type: initial encounter Qualified Code: S72.002A - Fracture of unspecified part of neck of left femur, initial encounter for closed fracture Onset Date 09/17/16 Status Acute Plan To OR for CRIF with long intertan cwephallomedullary nail. PARQ completed. Goals decrease morbidity and pain including risks of bedrest (decubiti, pneumonia, DVT/PE/) risks including bleedding need for transfusion, infection, nerve injury and failure to prevent risks/obtain goals discussed. all ?s invited and answered, Consnet signed and witrnessed. Site marked. Discussed with OR, anesthesia. OK to proceed although eloquis stopped ~1.5 days ago.
--- NOTE | 2016-09-17 15:24 | HISTORY AND PHYSICAL ---
ADMITTED: 09/17/2016 CHIEF COMPLAINT: Fall. HISTORY OF PRESENT ILLNESS: This is the admission for Dr. Bright because the attending physician is Dr. Bright. This is an 85-year-old white male who suffered a fall while trying to get in the car this morning. He could not keep his balance because he has weakness generalized due to anemia, so the patient was transferred to emergency and was found to have a left hip fracture and being admitted to have a repair done. MEDICAL/SURGICAL HISTORY: Past medical history: Remarkable for hypertension, heart block status post pacemaker, stroke, hypothyroidism and also degenerative joint disease of the wrists and anemia, which has been discovered several months ago and scheduled to have a colonoscopy in a few days. Surgical history: Remarkable for back, brain tumor surgery and appendectomy. MEDICATIONS: 1. Fosamax 70 mg once a week. 2. Sertraline 50 mg daily. 3. Flomax 0.4 mg 2 a day. 4. Atorvastatin 10 mg daily. 5. Verapamil 240 mg daily. 6. Levoxyl 50 mcg once a day. 7. Lisinopril 40 mg daily. ALLERGIES: 1. NO KNOWN DRUG ALLERGIES. SOCIAL HISTORY: The patient is , has 8 kids. No history of smoking, alcohol or drug abuse. FAMILY HISTORY: Noncontributory. REVIEW OF SYSTEMS: No recent weight changes. No blurred vision, but has a hearing aid, no runny nose or congestion, cough or sore throat. No chest pain. No palpitations or shortness of breath. No nausea or vomiting or indigestion. No abdominal pain. Normal regular bowel movements. No dysuria or incontinence, but has frequency, which is chronic. Has pain in the left hip. No headaches. No dizziness. No tingling, no numbness. The patient has residual weakness in the left side. PHYSICAL EXAMINATION: VITAL SIGNS: Blood pressure 146/83, heart rate is 70, respirations 20, oxygen is 98% on room air, and temperature 98.2. GENERAL APPEARANCE: Well developed, well nourished, good body build. Pain in the left hip looks like controlled. HEAD AND NECK: Ears: Left ear hearing aid on. Right ear, normal tympanic membrane. Mouth: Normal hypopharynx, no exudation, no erythema. Nose: Normal mucosa. Neck: Supple. No JVD. No carotid bruit. No palpable mass. SKIN: Warm and dry with good turgor. LUNGS: Clear to auscultation. No rhonchi or wheezing or crackles. HEART: Regular S1, S2. No murmur. No S3 was heard. ABDOMEN: Soft, nontender. Bowel sounds are positive. EXTREMITIES: No edema. Good peripheral pulses. No signs of DVT or cyanosis. MUSCULOSKELETAL: The patient has pain and tenderness in the left hip. NEUROLOGIC: Alert and oriented x3. Cranial nerves are grossly intact. No motor deficits in the upper extremities. Lower extremity could not be examined due to the fracture. Deep tendon reflexes are bilateral and symmetric. Pupils are equal , round, and reactive to light. Extraocular movements are intact. No nystagmus. No cerebellar signs. LAB/IMAGING: White blood count is 7.2, hemoglobin 8.9, hematocrit 28.3, and platelet count is 255. Glucose is 109, creatinine is 1.1. BUN is 21. Sodium is 139, potassium 3.8, chloride is 105, CO2 is 19, calcium is 8.1. Liver enzymes unremarkable. EKG is paced rhythm. A chest x-ray is normal. IMPRESSION: 1. Left hip fracture. 2. Hypertension. 3. Status post pacemaker. 4. Anemia. PLAN: The patient will be admitted an acute care inpatient and Orthopedist already consulted and plans to do surgery. Regarding the anemia, I am going to leave it to the surgeon and anesthesia whether they want to infuse 1 more unit of blood before surgery or not and I will order the outpatient medications and Dr. Birght is going to take over tomorrow and follow the patient in the hospital since he is the primary care physician.
--- NOTE | 2016-09-17 15:56 | Progress Note ---
Subjective General ADVANCED CARE PLAN History of Present Illness This is the admission for Dr. Bright because the attending physician is Dr. Bright. This is an 85-year-old white male who suffered a fall while trying to get in the car this morning. He could not keep his balance because he has weakness generalized due to anemia, so the patient was transferred to emergency and was found to have a left hip fracture and being admitted to have a repair done. A discussion was undertaken with the patient regarding previous advance care arrangements/decisions. The following advanced directives were noted by the patient and discussed with me at the time of admission. ADVANCED DIRECTIVES: 1. Living well: Yes 2. POLST: No 3. CODE STATUS: Full Code 4. Durable Power Powdered Sugar Supervisor Health care: Yes 5. Donor card: Yes The patient has expressed interest in pursuing full resuscitative efforts at the time of cardiopulmonary arrest. The patient has been placed on a FULL CODE STATUS. The patient's wishes were documented in the chart and orders regarding the patient's wishes entered into the [employer] system. The "Advance Care Plan Document" was not distributed to patient to discuss with his family. Less than 30 minutes was spent in performing the above tasks and documentation of the patient's advanced care plan.
--- NOTE | 2016-09-17 18:57 | ED DISCHARGE INSTRUCTIONS ---
Patient: SHAN MENA General Instructions [facility] VisitID: [id number] [address] [place] [address] 85y, M Registration Date/Time: 09/17/2016 Closed nondisplaced transverse, intertrochanteric fracture of the left femur. Moderate chronic iron deficiency anemia from chronic blood loss. INSTRUCTIONS Follow-up: Blood pressure screening was not performed during this visit because the patient has an active diagnosis of hypertension. (Electronically signed by Melvin Faye Dr. 09/17/2016 18:57)
--- NOTE | 2016-09-17 18:57 | ED MED RECONCILIATION SUMMARY ---
Patient: SHAN MENA Medication Reconciliation Report [facility] VisitID: [id number] [address] [place] [address] 85y, M Registration Date/Time: 09/17/2016 Weight: 95.2 kg Height/Length: 70 in. BMI: 30.1 ALLERGIES: NKDA The patient's Home Medications are listed below: THE FOLLOWING MEDICATIONS NEED TO BE RECONCILED: Atorvastatin Calcium Oral 10 mg, daily Flomax Oral 0.4 mg, 2x a day Fosamax Oral 70 mg, once weekly Levothyroxine Sodium Oral 50 mcg, daily Lisinopril Oral 40 mg, daily Sertraline HCl Oral 50 mg, daily Verapamil HCl Oral 240mg ER , at bedtime The source(s) of the original Home Medication information: Not obtained. The following Medications were given to the patient in the Emergency Department: Morphine [IVP] IVP 4 mg, administered: 09/17/2016 12:40:00 PM Zofran [IVP] IVP 4 mg, administered: 09/17/2016 12:40:00 PM Morphine [IVP] IVP 4 mg, administered: 09/17/2016 12:51:00 PM Diazepam [IVP] IVP 5 mg, administered: 09/17/2016 12:56:00 PM IV LACTATED RINGERS IV Fluids bolus 0, then 150 mL/hr, administered: 09/17/2016 1:52:00 PM TDAP [IM] IM 0.5 mL, administered: 09/17/2016 1:54:00 PM Morphine [IVP] IVP 4 mg, administered: 09/17/2016 3:45:00 PM TRANEXAMIC ACID (LOADING DOSE) [IVPB] IVPB bolus 0, then 1000 mg 200 mL/hr, administered: 09/17/2016 4:41:00 PM Morphine [IVP] IVP 4 mg, administered: 09/17/2016 6:05:00 PM The following Medications were prescribed to the patient: None.
--- NOTE | 2016-09-17 18:57 | ED DISCHARGE INSTRUCTIONS ---
Patient: SHAN MENA General Instructions [facility] VisitID: [id number] [address] [place] [address] 85y, M Registration Date/Time: 09/17/2016 Closed nondisplaced transverse, intertrochanteric fracture of the left femur. Moderate chronic iron deficiency anemia from chronic blood loss. INSTRUCTIONS Follow-up: Blood pressure screening was not performed during this visit because the patient has an active diagnosis of hypertension. (Electronically signed by Melvin aFye Dr. 09/17/2016 18:57)
--- NOTE | 2016-09-17 18:57 | ED MED RECONCILIATION SUMMARY ---
Patient: SHAN MENA Medication Reconciliation Report [facility] VisitID: [id number] [address] [place] [address] 85y, M Registration Date/Time: 09/17/2016 Weight: 95.2 kg Height/Length: 70 in. BMI: 30.1 ALLERGIES: NKDA The patient's Home Medications are listed below: THE FOLLOWING MEDICATIONS NEED TO BE RECONCILED: Atorvastatin Calcium Oral 10 mg, daily Flomax Oral 0.4 mg, 2x a day Fosamax Oral 70 mg, once weekly Levothyroxine Sodium Oral 50 mcg, daily Lisinopril Oral 40 mg, daily Sertraline HCl Oral 50 mg, daily Verapamil HCl Oral 240mg ER , at bedtime The source(s) of the original Home Medication information: Not obtained. The following Medications were given to the patient in the Emergency Department: Morphine [IVP] IVP 4 mg, administered: 09/17/2016 12:40:00 PM Zofran [IVP] IVP 4 mg, administered: 09/17/2016 12:40:00 PM Morphine [IVP] IVP 4 mg, administered: 09/17/2016 12:51:00 PM Diazepam [IVP] IVP 5 mg, administered: 09/17/2016 12:56:00 PM IV LACTATED RINGERS IV Fluids bolus 0, then 150 mL/hr, administered: 09/17/2016 1:52:00 PM TDAP [IM] IM 0.5 mL, administered: 09/17/2016 1:54:00 PM Morphine [IVP] IVP 4 mg, administered: 09/17/2016 3:45:00 PM TRANEXAMIC ACID (LOADING DOSE) [IVPB] IVPB bolus 0, then 1000 mg 200 mL/hr, administered: 09/17/2016 4:41:00 PM Morphine [IVP] IVP 4 mg, administered: 09/17/2016 6:05:00 PM The following Medications were prescribed to the patient: None.
--- NOTE | 2016-09-17 18:57 | ED MAR SUMMARY ---
..... Medication Administration Record [facility] [address] [place] [address] Patient: SHAN MENA Visit ID: [id number] 85y, M Weight: 95.2 kg Height/Length: 70 in BMI: 30.1 ALLERGIES: NKDA Given 12:40 09/17/2016 Racheal Mauricio R.N. Medication Administered: MORPHINE [IVP], Dose: 4 mg IVP over 1 minute(s), Site: #1 right forearm. Medication Ordered: Morphine IV 4 mg (NOW). Given 12:40 09/17/2016 Racheal Mauricio R.N. Medication Administered: ZOFRAN [IVP] (ONDANSETRON HCL), Dose: 4 mg IVP over 1 minute(s), Site: #1 right forearm. Medication Ordered: Zofran IV 4 mg (NOW). Given 12:51 09/17/2016 Racheal Mauricio R.N. Medication Administered: MORPHINE [IVP], Dose: 4 mg IVP over 1 minute(s), Site: #1 right forearm. Medication Ordered: Morphine IV 4 mg (NOW). Given 12:56 09/17/2016 Racheal Mauricio R.N. Medication Administered: DIAZEPAM [IVP] (DIAZEPAM), Dose: 5 mg IVP over 2 minute(s), Site: #1 right forearm. Medication Ordered: Diazepam IV 5 mg (HIGH ALERT MEDICATION, NOW). Start 13:52 09/17/2016 Racheal Mauricio R.N., Stop 18:10 09/17/2016 Racheal Mauricio R.N. Medication Administered: IV LACTATED RINGERS, Dose: IV Fluids over 4 hour(s), Rate: 150 mL/hr, Dispensed: 1000 mL bag, Site: #1 right forearm. Medication Ordered: IV Lactated Ringers : initial bolus none -, then 150 mL/hr (NOW). Given 13:54 09/17/2016 Racheal Mauricio R.N. Medication Administered: TDAP [IM], Dose: 0.5 mL IM. Medication Ordered: Tdap IM 0.5 mL (NOW, per protocol). Given 15:45 09/17/2016 Jeanna Kendrick R.N. Medication Administered: MORPHINE [IVP], Dose: 4 mg IVP over 2 minute(s), Site: #1 right forearm. Medication Ordered: Morphine IV 4 mg (HIGH ALERT MEDICATION, NOW). Start 16:41 09/17/2016 Racheal Mauricio R.N., Stop 17:00 09/17/2016 Lloyd Sullivan R.N. Medication Administered: TRANEXAMIC ACID (LOADING DOSE) [IVPB], Dose: 1000 mg IVPB over 15 minute(s), Rate: 200 mL/hr, Dispensed: 50 mL bag, Site: #1 right forearm. Medication Ordered: Tranexamic Acid (Loading Dose) IV 1000 mg/50mL (Over 15 minutes). Given 18:05 09/17/2016 Racheal Mauricio R.N. Medication Administered: MORPHINE [IVP], Dose: 4 mg IVP over 1 minute(s), Site: #1. Medication Ordered: Morphine IV 4 mg (HIGH ALERT MEDICATION, NOW).
--- NOTE | 2016-09-17 18:57 | ED MAR SUMMARY ---
..... Medication Administration Record [facility] [address] [place] [address] Patient: SHAN MENA Visit ID: [id number] 85y, M Weight: 95.2 kg Height/Length: 70 in BMI: 30.1 ALLERGIES: NKDA Given 12:40 09/17/2016 Racheal Mauricio R.N. Medication Administered: MORPHINE [IVP], Dose: 4 mg IVP over 1 minute(s), Site: #1 right forearm. Medication Ordered: Morphine IV 4 mg (NOW). Given 12:40 09/17/2016 Racheal Mauricio R.N. Medication Administered: ZOFRAN [IVP] (ONDANSETRON HCL), Dose: 4 mg IVP over 1 minute(s), Site: #1 right forearm. Medication Ordered: Zofran IV 4 mg (NOW). Given 12:51 09/17/2016 Racheal Mauricio R.N. Medication Administered: MORPHINE [IVP], Dose: 4 mg IVP over 1 minute(s), Site: #1 right forearm. Medication Ordered: Morphine IV 4 mg (NOW). Given 12:56 09/17/2016 Racheal Mauricio R.N. Medication Administered: DIAZEPAM [IVP] (DIAZEPAM), Dose: 5 mg IVP over 2 minute(s), Site: #1 right forearm. Medication Ordered: Diazepam IV 5 mg (HIGH ALERT MEDICATION, NOW). Start 13:52 09/17/2016 Racheal Mauricio R.N., Stop 18:10 09/17/2016 Racheal Mauricio R.N. Medication Administered: IV LACTATED RINGERS, Dose: IV Fluids over 4 hour(s), Rate: 150 mL/hr, Dispensed: 1000 mL bag, Site: #1 right forearm. Medication Ordered: IV Lactated Ringers : initial bolus none -, then 150 mL/hr (NOW). Given 13:54 09/17/2016 Racheal Mauricio R.N. Medication Administered: TDAP [IM], Dose: 0.5 mL IM. Medication Ordered: Tdap IM 0.5 mL (NOW, per protocol). Given 15:45 09/17/2016 Jeanna Kendrick R.N. Medication Administered: MORPHINE [IVP], Dose: 4 mg IVP over 2 minute(s), Site: #1 right forearm. Medication Ordered: Morphine IV 4 mg (HIGH ALERT MEDICATION, NOW). Start 16:41 09/17/2016 Racheal Mauricio R.N., Stop 17:00 09/17/2016 Lloyd Sullivan R.N. Medication Administered: TRANEXAMIC ACID (LOADING DOSE) [IVPB], Dose: 1000 mg IVPB over 15 minute(s), Rate: 200 mL/hr, Dispensed: 50 mL bag, Site: #1 right forearm. Medication Ordered: Tranexamic Acid (Loading Dose) IV 1000 mg/50mL (Over 15 minutes). Given 18:05 09/17/2016 Racheal Mauricio R.N. Medication Administered: MORPHINE [IVP], Dose: 4 mg IVP over 1 minute(s), Site: #1. Medication Ordered: Morphine IV 4 mg (HIGH ALERT MEDICATION, NOW).
== END 2016-09-17 18:10 | disposition short-term general hospital (02) ==
LOC: ED SRH 12:27 → TRANS SRH 14:19 → ED SRH 14:19 → TRANS SRH 14:19 → ED SRH 18:10
DX: S72.145A Nondisplaced intertrochanteric fracture of left femur, initial encounter for closed fracture (principal); D50.0 Iron deficiency anemia secondary to blood loss (chronic); W01.0XXA Fall on same level from slipping, tripping and stumbling without subsequent striking against object, initial encounter; Y93.9 Activity, unspecified; Y92.009 Unspecified place in unspecified non-institutional (private) residence as the place of occurrence of the external cause; Y99.9 Unspecified external cause status; I10 Essential (primary) hypertension; J45.909 Unspecified asthma, uncomplicated; E03.9 Hypothyroidism, unspecified; Z79.899 Other long term (current) drug therapy

== ENCOUNTER 2016-10-27 07:46 | Day surgery (SDC) | payer OTHER ==
[~2016-10-27] VITALS: Ht 180.3 cm; Wt 86.9 kg
[~2016-10-27 07:46] MED LIST changes: +CARDURA8 MG PO; +IRON325 MG PO
--- NOTE | 2016-10-27 08:38 | NUR ---
PREOP INSTRUCTIONS GIVEN TO PATIENT. QUESTIONS ANSWERED. PATIENT VERBALIZES UNDERSTANDING. CONSENT CONFIRMED. NO PREOP MEDICATIONS GIVEN. BERT
--- NOTE | 2016-10-27 09:22 | Provider's Discharge Care Plan ---
Problem, Goal, Plan Problem List 1. Status post colonoscopy Goals: Screening Instructions: Follow up as needed, Take meds as directed, high-fiber diet
--- NOTE | 2016-10-27 09:22 | Provider's Discharge Care Plan ---
Problem, Goal, Plan Problem List 1. Status post colonoscopy Goals: Screening Instructions: Follow up as needed, Take meds as directed, high-fiber diet
--- NOTE | 2016-10-27 09:24 | NUR ---
PATIENT ARRIVED TO PACU AT 0920. SPONT RESP. AROUSABLE. VITAL SIGNS STABLE. DENIES DISCOMFORT/ NAUSEA AT THIS TIME. WILL CONTINUE TO MONITOR.
--- NOTE | 2016-10-27 09:25 | Operative Report ---
Operative Report Date of Surgery: 10/27/16 Preoperate Diagnosis: history of bright red blood per rectum Postoperative Diagnosis: extensive diverticulosis and internal hemorrhoids Surgeon: Dwayne Mcgowan MD Collections Specialist Surgeon: none Procedure Performed: Colonoscopy Anesthesia: Total intravenous anesthesia Indications: 85-year-old male history of bright red blood per rectum and anemia upper GI endoscopy unremarkable now scheduled for colonoscopy. FINDINGS: Normal appearing cecum, descending, transverse colon. Patient is noted to have extensive sigmoid diverticulosis with scattered diverticuli throughout the remaining colon. Rectal wall normal. Obvious internal hemorrhoids. Surgical Technique: Patient was brought to the operating room. Patient was placed in the left lateral decubitus position. Patient was administered TIVA by anesthesia. Once anesthesia had taken effect digital rectal examination was performed. No masses or stenosis was appreciated. This was then followed by the passage of a fiberoptic video flexible Olympus colonoscope. The scope was then passed with difficulty secondary to the extensive diverticulosis and the cecum was eventually visualized. The cecum was identified by anatomical landmarks and anterior abdominal wall ballottement. On withdrawing the scope the aforementioned findings were noted. The scope was then retroflexed and a good view of the rectal wall obtained. The scope was then completely withdrawn. Patient tolerated procedure well. Patient was transferred to the recovery room in stable condition. There were no intraoperative or anesthetic complications.
--- NOTE | 2016-10-27 09:52 | NUR ---
PT RETURNED FROM PACU NO C/O DISCOMFORT PASSING FLATUS
--- NOTE | 2016-10-27 10:37 | NUR ---
PO OFFERED AND TOLERATED. DENIES ANY PAIN OR NAUSEA. DISCHARGE INSTRUCTIONS GIVEN TO PATIENT AND HIS . QUESTIONS ANSWERED. PATIENT VERBALIZES UNDERSTANDING. WILL DISCHARGE HOME WITH HIS
[2016-10-27 10:46] VITALS: BP 134/80
== END 2016-10-27 10:44 | disposition home or self-care (01) ==
LOC: OR SRH 07:46 → OB SRH 07:47 → OR SRH 09:30
PROVIDERS: Specialist
PROC: 0DJD8ZZ Inspection of Lower Intestinal Tract, Via Natural or Artificial Opening Endoscopic (ICD-10-PCS; principal; 2016-10-27 09:30)
DX: K57.30 Diverticulosis of large intestine without perforation or abscess without bleeding (principal); K64.8 Other hemorrhoids; D64.9 Anemia, unspecified; Z79.01 Long term (current) use of anticoagulants; Z95.0 Presence of cardiac pacemaker; I10 Essential (primary) hypertension